=== PATIENT | female | born 1995 | race African-American/Black ===

== ENCOUNTER 2019-01-28 04:39 | Emergency (ER) | payer SELFPAY ==
[~2019-01-28] VITALS: Ht 167.6 cm; Wt 57.7 kg
[2019-01-28 04:45] VITALS: Ht 167.6 cm; Wt 57.7 kg
[2019-01-28] MEDS ORDERED: SOD CHLORIDE 0.9% 1,000 ML IV STA (05:24)
[2019-01-28] MEDS ORDERED: ONDANSETRON 4 MG INJ IV STA ×2 (05:24→09:16)
[2019-01-28] MEDS ORDERED: morphine 4 MG/ML VIAL IV STA (05:24)
[2019-01-28] MEDS ORDERED: SOD CHLORIDE 0.9% 1,000 ML IV ONE (08:00)
[2019-01-28] MEDS ORDERED: ONDA4TAB8 PO (10:57)
--- NOTE | 2019-01-28 11:00 | ERD ---
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 Patient states over the last 24 hours, she has had a worsening of nausea and nonbilious nonbloody emesis that began even a few days prior to that. In total she is had this for about 2 or 3 days. She reports no fevers or chills. She reports no localizing abdominal pain but does have a visceral, nonspecific abdominal discomfort. She reports no diarrhea. She reports no urinary symptoms or gynecologic symptoms. ROS All systems reviewed and are negative except as per history of present illness. Medications Home Meds Active Scripts Ondansetron Hcl* (Zofran*) 4 Mg Tablet, 4 MG PO Q8H PRN for NAUSEA AND/OR VOMITING, #30 TAB Prov:LUIS JARAMILLOSON 01/28/19 Allergies Allergies: Coded Allergies: No Known Allergy (Unverified , 01/28/19) PMhx/Soc Medical and Surgical Hx: pt denies Medical Hx History of Surgery: Yes (CHOLECYSTECTOMY) Anesthesia Reaction: No Hx Neurological Disorder: No Hx Respiratory Disorders: No Hx Cardiac Disorders: No Hx Psychiatric Problems: No Hx Miscellaneous Medical Probl: No Hx Alcohol Use: No Hx Substance Use: Yes (MARIJUANA, LAST USE 01/27/19) Hx Tobacco Use: No Smoking Status: Current every day smoker FmHx Noncontributory for chief complaint Physical Exam Vitals Vital Signs Date Temp Pulse Resp B/P (MAP) Pulse Ox O2 O2 Flow FiO2 Time Delivery Rate 01/28/19 97.9 105 20 113/80 98 04:45 (91) Physical Exam GENERAL: The patient is well developed and appropriate for usual state of health in no apparent distress HEENT: Pupils equal, round, and reactive to light. EOMI. There is no scleral icterus. NECK: C-spine is soft and supple, there is no meningismus. There is no cervical lymphadenopathy. LUNGS: Clear to auscultation bilaterally. There are no rales, wheezes or rhonchi. HEART: Regular rate and rhythm, no murmurs, clicks, rubs or gallops. ABDOMEN: Soft, non-tender, non-distended. There are bowel sounds in all four quadrants. No rebound or guarding. EXTREMITIES: There is no peripheral cyanosis or edema. No focal swelling or erythema. NEURO: The patient moves all four extremities with 5/5 strength. Cranial nerves II - XII are intact. Patient has a rotational nystagmus, normal gait. Alert and oriented SKIN: There is no apparent rash or petechiae. HEME/LYMPHATIC: There is no evidence of excessive bruising or lymphedema. PSYCHIATRIC: The patient does not appear anxious or depressed. Result Diagram: 01/28/19 0618 01/28/1918 Results 24 hrs Laboratory Tests Test 01/28/19 05:58 01/28/19 06:05 01/28/19 06:18 Urine Color YELLOW Urine Clarity SLIGHTLY CLOUDY Urine pH 5.0 Urine Specific [place] 1.028 Urine Ketones 1+ mg/dL Urine Nitrite NEGATIVE mg/dL Urine Bilirubin NEGATIVE mg/dL Urine Urobilinogen NEGATIVE mg/dL Urine Leukocyte Esterase NEGATIVE Louann/ul Urine Microscopic RBC 1 /HPF Urine Microscopic WBC 5 /HPF Urine Squamous Epithelial Cells FEW /HPF Urine Mucus MANY /HPF Urine Hemoglobin NEGATIVE mg/dL Urine Glucose NEGATIVE mg/dL Urine Total Protein 1+ mg/dl Urine Opiates Screen Positive Urine Barbiturates Negative Urine Amphetamines Screen Negative Urine Benzodiazepines Screen Negative Urine Cocaine Screen Negative Urine Cannabinoids Positive POC Beta HCG, Qualitative NEGATIVE White Blood Count 9.8 10^3/ul Red Blood Count 4.14 10^6/ul Hemoglobin 12.2 g/dl Hematocrit 36.3 % Mean Corpuscular Volume 87.7 fl Mean Corpuscular Hemoglobin 29.5 pg Mean Corpuscular 33.6 g/dl Hemoglobin Concent Red Cell Distribution Width 11.7 % Platelet Count 276 10^3/UL Mean Platelet Volume 10.3 fl Immature Granulocytes % 0.300 % Neutrophils % 85.7 % Lymphocytes % 11.9 % Monocytes % 1.6 % Eosinophils % 0.3 % Basophils % 0.2 % Nucleated Red Blood Cells % 0.0 /100WBC Immature Granulocytes # 0.030 10^3/ul Neutrophils # 8.4 10^3/ul Lymphocytes # 1.2 10^3/ul Monocytes # 0.2 10^3/ul Eosinophils # 0.0 10^3/ul Basophils # 0.0 10^3/ul Nucleated Red Blood Cells # 0.0 10^3/ul Sodium Level 141 mmol/L Potassium Level 3.3 mmol/L Chloride Level 107 mmol/L Carbon Dioxide Level 24 mmol/L Anion Gap 10 Blood Urea Nitrogen 17 mg/dl Creatinine 0.70 mg/dl Est Glomerular Filtrat > 60 mL/min Rate mL/min Glucose Level 149 mg/dl Calcium Level 9.0 mg/dl Total Bilirubin 0.2 mg/dl Direct Bilirubin 0.00 mg/dl Indirect Bilirubin 0.2 mg/dl Aspartate Amino 19 IU/L Transf (AST/SGOT) Alanine 20 IU/L Aminotransferase (ALT/SGPT) Alkaline Phosphatase 37 IU/L Total Protein 7.0 g/dl Albumin 4.0 g/dl Globulin 3.00 g/dl Albumin/Globulin Ratio 1.33 Lipase 111 U/L Current Medications Medications Dose Sig/Cherri Start Time Status Last (Trade) Ordered Route PRN Stop Time Admin Dose Reason Admin Sodium 1,000 ml @ Q1H STAT 01/28/19 DC 01/28/19 Chloride 1,000 mls/hr IV 05:24 05:42 01/28/19 06:23 Morphine 4 mg ONCE STAT 01/28/19 DC 01/28/19 Sulfate IV 05:24 05:42 (morphine) 01/28/19 05:25 Ondansetron 4 mg ONCE STAT 01/28/19 DC 01/28/19 HCl (Zofran IV 05:24 05:42 Inj) 01/28/19 05:25 Sodium 1,000 ml @ Q1H ONCE 01/28/19 DC 01/28/19 Chloride 1,000 mls/hr IV 08:00 07:46 01/28/19 08:59 Ondansetron 4 mg ONCE STAT 01/28/19 DC 01/28/19 HCl (Zofran IV 09:16 09:23 Inj) 01/28/19 09:17 Procedures/MDM Patient was taken to a room, seen and evaluated. Comfort measures were initiated. Diagnostic tests were ordered and reviewed. 3 LEAD RHYTHM STRIP: Normal sinus rhythm without ectopy RADIOLOGY: Reviewed with the radiologist REEVALUATION: Patient has been had a prolonged observation in the emergency department. Observation was indicated for serial examinations of the abdomen, diagnostic evaluation and further therapeutic measures. Total observation time is been a total of approximately 4 hours during which time her examinations of her abdomen remained benign with no evidence of appendicitis or other high-risk intra-abdominal concerns. After supportive care, she seems to feel much better and has stopped vomiting. She remains neurologically normal. Her family came to the bedside and seemed comfortable taking her home. MEDICAL DECISION MAKIN-year-old female presents the emergency part with nausea and vomiting in the setting of a rotational nystagmus but a benign abdominal examination. Her diagnostic workup focused on making sure she did not have appendicitis, cholecystitis or other high-risk intra-abdominal concerns. This workup seems to show that she has no intra-abdominal concerns. Her nystagmus was concerning for likely drugs of abuse and she does smoke marijuana which I suspect is playing a role in her vomiting. Overall, after supportive care, she appears to be clinically well with no signs of other high-risk concerns and seems appropriate for discharge. Departure Diagnosis: Primary Impression: Marijuana abuse Additional Impression: Vomiting Condition: Stable Patient Instructions: Vomiting (6Y-Adult) Additional Instructions: See your doctor for follow-up as discussed. Take a copy of your test results, if appropriate, to this follow-up visit. See your doctor or return here if your symptoms do not improve as expected. At any time, please return to the emergency department for any change or worsening in her symptoms. BRUCE JARAMILLO Jan 28, 2019 11:00
[2019-01-28 11:08] VITALS: BP 128/78; PULSE 80; RESP 20
== END 2019-01-28 11:17 | disposition home or self-care (01) ==
LOC: E/R 04:39
DX: F12.10 Cannabis abuse, uncomplicated (principal); F17.210 Nicotine dependence, cigarettes, uncomplicated; R11.10 Vomiting, unspecified; R40.4 Transient alteration of awareness
CPT/HCPCS: 70450; 80053; 80307; 81001; 81025; 83690; 85025; 96374; 96375; 96376; 99285; J2270; J2405; J7030